=== PATIENT | female | born 1995 | race Caucasian/White ===

== ENCOUNTER 2020-06-06 12:56 | Outpatient (REF) | payer MEDICAID, SELFPAY | END 2020-06-06 12:57 | disposition home or self-care (01) | LOC: HO.LAB 12:56 | PROVIDERS: PCP Internal Medicine; Visit Provider Internal Medicine | DX: Z20.828 Contact with and (suspected) exposure to other viral communicable diseases (principal) | CPT/HCPCS: C9803; U0003 ==

== ENCOUNTER 2021-12-30 09:59 | Emergency (ER) | payer MEDICAID, SELFPAY ==
[2021-12-30 10:14] VITALS: BP 126/80; PULSE 73; RESP 16; TEMP 36.1; O2SAT 100; BMI 31.3
[2021-12-30 10:45] LABS: COVID-19 Test Negative (Negative)
[2021-12-30 10:53] LABS: IDNOW Serial# 08D9AD1C; Strep A Nucleic Acid Negative (Negative)
--- NOTE | 2021-12-30 11:58 | ED_ITS ---
HPI - URI/Sore Throat General Chief Complaint: Upper Respiratory Symptoms Stated Complaint: sore throat Time Seen by Provider: 12/30/21 11:58 Source: patient Mode of arrival: ambulatory Limitations: no limitations History of Present Illness HPI Narrative: Patient presents emergency department for evaluation of a sore throat and cough. Patient states that for 1 week she has been experiencing a sore throat, with p roductive cough. Reports her throat to be more sore at night and notices herself coughing more. During the day her throat is described as itchy. She does report a runny nose, and being told in the past that she has seasonal allergies. She does additionally report that her partner is having COVID like symptoms. Denies fevers, chills, headache, lightheadedness, additional upper respiratory symptoms, chest pain, palpitations, shortness of breath, difficulty breathing, nausea, vomiting abdominal pain. Related Data Allergies Allergy/AdvReac Type Severity Reaction Status Date / Time No Known Allergies Allergy Unverified 03/01/20 17:10 [No Known Allergies*] Review of Systems 2 Review of Systems: Constitutional: No fever. No chills. No weakness. No fatigue. ENT/ Mouth: No Ear Pain, no Nasal Congestion, positive sore throat, positive Rhinorrhea, No Swallowing Difficulty Skin: No rash or itching. Cardiovascular: No chest pain. No palpitations. Respiratory: No shortness of breath. Positive cough. Positive sputum production. Gastrointestinal: No nausea. No vomiting. No diarrhea. No abdominal pain. Genitourinary: No burning micturition. No urinary frequency. Neurologic: No headache. No dizziness. No syncope. No numbness or tingling in the extremities. Musculoskeletal: No muscle pain. No back pain. No joint pain or stiffness. Yes all other systems are reviewed and are negative [facility] Past Medical History Attestation statement: The following information was validated with the patient. Source: old records reviewed Social History Social History Advance Directives: No Advance Directives Information Provided: No Physical Exam Vital Signs: Vital Signs: Last Vital Signs Temp 97.0 F 12/30/21 10:14 Pulse 73 12/30/21 10:14 Resp 16 12/30/21 10:14 BP 126/80 12/30/21 10:14 Pulse Ox 100 12/30/21 10:14 O2 Del Method 12/30/21 10:14 BMI result Body Mass Index 31.3 Vital signs have been reviewed as normal and appeared to be correct. Blood pressure normal.? Heart rate normal.? Respiration rate normal. Temperature normal.? Oxygen saturation normal. Appearance: Alert.?Oriented to person, place and time. No acute distress.?Normal affect. Eyes: Pupils equal, round and reactive to light.? ENT: TM normal bilaterally. Pharynx very mild erythema, no exudate, no tonsillar hypertrophy?? Neck: Normal inspection.? Neck supple.??No cervical adenopathy CVS: Heart sounds normal. Normal heart rate and rhythm.? Pulses normal.?? Respiratory: No respiratory distress.? Lung sounds clear to auscultation bilaterally?? Abdomen: Soft and non-tender. Normoactive bowel sounds. Skin: Skin warm and dry.? Normal skin color.? ? Extremities: No lower extremity edema.? Neuro: Moves all extremities spontaneously. Sensation intact bilaterally. No motor deficits. Ambulates with normal steady gait. Course Course Course Narrative: Patient is a 26-year-old female with no significant past medical history, presenting for evaluation of sore throat and cough. COVID-19 testing negative. Group a strep testing negative. Consistent with peritonsillar abscess Patient declines possibility or concern for oral sexually transmitted infections. At this time history and physical exam not consistent with ACS/PE/pneumonia. Suspect that symptoms are most likely secondary to possible viral upper respiratory infection, verses postnasal drip. She is well-appearing, nontoxic, afebrile, no tachycardia or tachypnea/hypoxia. Speaking clear full sentences, ambulatory with steady gait. Discussed conservative treatment including rest, hydration, Flonase nasal spray which a prescription will be sent to her pharmacy for, also available [id number], and humidifier. Advised to follow-up with primary care provider as needed, discussed reasons to return back to the emergency department. All questions were answered. Patient discharged home in stable condition. MDM - URI/Sore Throat Medical Records Attestation: I reviewed the patient's medical records. Lab Data Attestation: I reviewed the patient's lab results. Labs: Lab Results 12/30/21 12/30/21 Range/Units 10:18 10:18 COVID-19 (ALLIE) Negative (Negative) COVID-19 Clin Com See Note S. pyogenes GrpA CARTER Negative (Negative) Discharge Plan Discharge Clinical Impression: Pharyngitis Patient Disposition: Home, Self-Care Instructions: Pharyngitis (ED), Postnasal Drip (DC) Additional Instructions: COVID-19 and Step testing were negative As we discussed, you may trial a course of Flonase 1 spray to each nostril twice daily. This should be use consistently for 1-2 weeks. If your symptoms resolve you may trial discontinuing medication. Please follow-up with your primary care provider for any persistent symptoms. You may return to the emergency department with any new or worrisome symptoms or concerns Interventions: ED Discharge Assessment Last Done: 12/30/21 12:29 Discharge Date/Time: 12/30/21 12:30
== END 2021-12-30 12:30 | disposition home or self-care (01) ==
PROVIDERS: Emergency Provider Emergency Medicine
DX: J02.9 Acute pharyngitis, unspecified (principal); R05.9 Cough, unspecified; Z20.822 Contact with and (suspected) exposure to COVID-19
CPT/HCPCS: 36415; 87635; 87651; 99283

== ENCOUNTER 2022-01-15 14:23 | Emergency (ER) | payer MEDICAID, SELFPAY ==
[2022-01-15 15:34] VITALS: BP 133/90; PULSE 88; RESP 18; TEMP 36.9; O2SAT 98; BMI 34.4
[2022-01-15 16:05] LABS: MANUAL DIFF FLAG NO
[2022-01-15 16:07] LABS: Basophils Percent Auto 0.3 % (0-2); Eosinophils Absolute Auto 0.1 X10*3/uL (0.0-0.4); Eosinophils Percent Auto 0.9 % (0-4); Hematocrit 42.3 % (37.0-47.0); Hemoglobin 14.8 g/dl (12.0-16.0); Imm Gran Abs Auto 0.02 X10*3/uL (0.00-0.03); Imm Gran Pct Auto 0.3 % (0.0-0.4); Lymphocytes Absolute Auto 1.8 X10*3/uL (1.2-4.9); Lymphocytes Percent Auto 24.2 % (20-40); Mean Corpuscular Hemoglobin 31.1 pg (27.0-33.0); Mean Corpuscular Volume 88.9 fL (80.0-98.0); Mean Platelet Volume 10.6 fL (9.4-12.3); Monocytes Absolute Auto 0.4 X10*3/uL (0.1-1.2); Monocytes Percent Auto 5.6 % (2-11); Neutrophils Absolute Auto 5.1 x10*3/uL (2.0-8.3); Neutrophils Percent Auto 68.7 % (45-73); Platelet Count 247 X10*3/uL (160-400); Red Blood Count 4.76 X10*6/uL (4.20-5.50); White Blood Count 7.4 X10*3/uL (4.8-10.8)
[2022-01-15 16:20] LABS: Anion Gap 15 (12-20); Blood Urea Nitrogen 10 mg/dL (9-16); Calcium 9.5 mg/dL (8.4-10.2); Carbon Dioxide 24 mmol/L (22-29); Chloride 107 mmol/L (96-108); Creatinine Clr Calc Pharmacy 106.8; Estimated Glomerular Filt Rate > 60; Glucose Random 115 mg/dL (60-115); Sodium 142 mmol/L (135-145)
[2022-01-15 16:25] LABS: COVID-19 Test Negative (Negative)
--- NOTE | 2022-01-15 20:54 | ED.ABDPAIN ---
HPI - Abdominal Pain General Chief Complaint: Abdominal Pain Stated Complaint: nausea, Diarrhea Source: patient Mode of arrival: ambulatory Limitations: no limitations History of Present Illness HPI narrative: 26-year-old female presents with diffuse diffuse abdominal pain, nausea, vomiting, and diarrhea that started at 11:00 this morning. She states that she still feels nauseous and has had multiple bowel movements but does not have any other concerning symptoms at this time. Patient states to feel fatigued but denies fevers, chills, chest pain or pressure, palpitations, , abdominal distention, dysuria, hematuria, melena, hematochezia, or hematemesis. MD elicited complaint: abdominal pain Pertinent past history: none Onset (ago): hour(s) (10 hours) Pain Consistency: intermittent Location: diffuse Severity: moderate Pain scale (0-10): 6 Quality: cramping Radiation: none Exacerbating factors: bowel movement Relieving factors: nothing Associated symptoms: nausea, vomiting and diarrhea Related Data Previous Rx's Medication Instructions Recorded fluticasone propionate 50 1 spray intranasal BID #16 grams 12/30/21 mcg/actuation nasal spray,suspension (Flonase Allergy Relief) Allergies Allergy/AdvReac Type Severity Reaction Status Date / Time No Known Allergies Allergy Unverified 01/15/22 15:34 [No Known Allergies*] Review of Systems Review of Systems Constitutional: No Weight loss, No Fever, No Chills, No Night Sweats, No Fatigue, No Malaise ENT/Mouth: No Hearing loss, No Ear Pain, No Nasal Congestion, No Sinus Pain, No Hoarseness, No sore throat, No Rhinorrhea, No Swallowing Difficulty Eyes: No Eye Pain, No Swelling, No Redness, No Foreign Body, No Discharge, No Vision Changes Cardiovascular: No Chest Pain, No SOB, No Dyspnea on Exertion, No Orthopnea, No Edema, No Palpitations Respiratory: No Cough, No Sputum, No Wheezing, No Smoke Exposure, No Dyspnea Gastrointestinal: Positive Nausea, Positive Vomiting, positive Diarrhea, positive abdominal Pain, No Hematochezia, No Melena Genitourinary: no irregular bleeding, No Dysuria, No Urinary Frequency, No Hematuria, No Urinary Incontinence, No Urgency, No Flank Pain, No Urinary Flow Changes, No Hesitancy Musculoskeletal: No joint pain, No Myalgias, No Joint Swelling Skin: No Skin Lesions, No rash Neuro: No Weakness, No Numbness, No Paresthesias, No Loss of Consciousness, No Dizziness, No Headache Psych: No Anxiety/Panic, No Depression, No SI/HI/AH/VH, No Social Issues Heme/Lymph: No Bruising, No Bleeding,No Lymphadenopathy Endocrine: No Polyuria, No Polydipsia, No Temperature Intolerance Yes all other systems are reviewed and are negative ON LICENSE OF [facility] Past Medical History Attestation statement: The following information was validated with the patient. Source: old records reviewed Social History Social History Patient Tobacco Use Status: Current everyday Tobacco user Use of substances other than those prescribed or required for medical reasons: No Advance Directives: No Advance Directives Information Provided: No Physical Exam ED Vital Signs: Vital Signs - 24 hr 01/15/22 15:34 01/15/22 21:45 Temperature 98.4 F Pulse Rate 88 81 Respiratory Rate 18 18 Blood Pressure 133/90 H 125/81 Pulse Oximetry 98 100 Oxygen Delivery Method Room Air Room Air BMI result Body Mass Index 34.4 Appearance: Alert. Oriented X3. No acute distress. Eyes: Pupils equal, round and reactive to light. Sclera nonicteric. ENT: Pharynx normal. Moist mucous membranes. Neck: Normal inspection. Neck supple. CVS: Normal heart rate and rhythm. Pulses normal. Respiratory: No respiratory distress. Breath sounds normal. Abdomen: Soft and nontender. Negative psoas, obturator, Alaniz's and McBurney's. No distention or rigidity. No hepatosplenomegaly. Skin: Skin warm and dry. Normal skin color. Normal skin turgor. Extremities: No lower extremity edema. Gait well-balanced well coordinated. Neuro: No motor deficit. No sensory deficit. Cranial nerves 2-12 intact. Course Course Course Narrative: 26-year-old female presents with several hours of abdominal pain, nausea, vomiting, and diarrhea. Does not report any sick contacts or eating questionable food products. Patient is not , does not report melena, hematochezia, or hematemesis. Afebrile and nontoxic. Labs drawn while patient was in the emergency department waiting room and all are unremarkable. Physical exam is negative for acute findings. At this time I feel that no further workup is necessary. I did discuss possibility for appendicitis versus colitis versus viral syndrome. Patient does understand that if symptoms persist that she must return for evaluation as this could always could be an early appendicitis. Patient verbalized understanding of and agrees to plan of care discharge home. Verbalizes understanding of signs symptoms indicating need for emergent intervention. MDM - Abdominal Pain Differential Diagnosis Differential diagnosis: Likely abdominal pain, acute appendicitis, diverticulitis and gastritis Medical Records Attestation: I reviewed the patient's medical records. Lab Data Attestation: I reviewed the patient's lab results. Result diagrams: 01/15/22 16:00 01/15/22 16:00 Labs: Lab Results 01/15/22 01/15/22 01/15/22 Range/Units 15:55 16:00 16:00 WBC 7.4 (4.8-10.8) X10*3/uL RBC 4.76 (4.20-5.50) X10*6/uL Hgb 14.8 (12.0-16.0) g/dl Hct 42.3 (37.0-47.0) % MCV 88.9 (80.0-98.0) fL MCH 31.1 (27.0-33.0) pg MCHC 35.0 (31.0-35.0) g/dl RDW 12.0 (11.0-16.0) % Plt Count 247 (160-400) X10*3/uL MPV 10.6 (9.4-12.3) fL Immature Gran % (Auto) 0.3 (0.0-0.4) % Neut % (Auto) 68.7 (45-73) % Lymph % (Auto) 24.2 (20-40) % Carroll % (Auto) 5.6 (2-11) % Eos % (Auto) 0.9 (0-4) % Baso % (Auto) 0.3 (0-2) % Lymph # (Auto) 1.8 (1.2-4.9) X10*3/uL Carroll # (Auto) 0.4 (0.1-1.2) X10*3/uL Eos # (Auto) 0.1 (0.0-0.4) X10*3/uL Baso # (Auto) 0.0 (0.0-0.2) X10*3/uL Abs Immat Gran (auto) 0.02 (0.00-0.03) X10*3/uL Absolute Neuts (auto) 5.1 (2.0-8.3) x10*3/uL Absolute Nucleated RBC 0.000 (0.0-0.012) X10*3/uL Nucleated RBC % (auto) 0.0 (0.0-0.2) /100WBC Sodium 142 (135-145) mmol/L Potassium 4.0 (3.3-5.1) mmol/L Chloride 107 (96-108) mmol/L Carbon Dioxide 24 (22-29) mmol/L Anion Gap 15 (12-20) BUN 10 (9-16) mg/dL Creatinine 0.96 (0.5-1.4) mg/dL Estim Creat Clear Calc 106.8 Estimated GFR > 60 Random Glucose 115 (60-115) mg/dL Calcium 9.5 (8.4-10.2) mg/dL COVID-19 (ALLIE) Negative (Negative) COVID-19 Clin Com See Note Discharge Plan Discharge Clinical Impression: Acute viral syndrome Patient Disposition: Home, Self-Care Instructions: Viral Syndrome (ED) Additional Instructions: You were evaluated for abdominal pain, nausea vomiting and diarrhea. Your symptoms are consistent with viral syndrome. Please rest and drink plenty of fluids. Follow-up with primary care provider as needed. Thank you for choosing this emergency department for evaluation. Please follow-up with primary care physician as needed. Return to the emergency department for any new, concerning, or worsening symptoms. Prescriptions: No Action fluticasone propionate [Flonase Allergy Relief] 50 mcg/actuation spray,suspension 1 spray intranasal BID Qty: 16 0RF Rx Instructions: administer into each nostril Stand Alone Forms: Work/School Release Interventions: ED Discharge Assessment Last Done: 01/15/22 21:46 Discharge Date/Time: 01/15/22 21:49
[2022-01-15 21:45] VITALS: BP 125/81; PULSE 81; RESP 18; O2SAT 100
== END 2022-01-15 21:49 | disposition home or self-care (01) ==
PROVIDERS: Emergency Provider Internal Medicine
DX: B34.9 Viral infection, unspecified (principal); R10.9 Unspecified abdominal pain; Z20.822 Contact with and (suspected) exposure to COVID-19; Z79.899 Other long term (current) drug therapy; F17.200 Nicotine dependence, unspecified, uncomplicated; Z71.6 Tobacco abuse counseling
CPT/HCPCS: 80048; 85025; 87635; 99283; 99284

== ENCOUNTER 2025-05-17 18:18 | Emergency (ER) | payer SELFPAY ==
--- NOTE | ~2025-05-17 | XR_ITS ---
CLINICAL HISTORY: coughing. pnuemnia? Single view of the chest. COMPARISON: None provided. FINDINGS: Normal heart and mediastinal contours. No consolidation. No pleural effusion or pneumothorax. No acute fracture. Scoliosis. IMPRESSION: 1. No consolidation. This document has been electronically signed by: Alfredo Guerin MD on 05/17/2025 19:48:16
--- NOTE | 2025-05-17 19:09 | ED.GENADULT ---
HPI - General Adult General Chief complaint: General Medical Stated complaint: URI symptoms Time Seen by Provider: 05/17/25 22:36 Source: patient Limitations: no limitations History of Present Illness ED Provider: Whitney Cobos PA-C HPI narrative: 30-year-old female with a history of asthma presents with cough and cold symptoms x3 days. Associated headache, myalgias, fever chills and dry cough, wheezing at times. No sick contacts with similar symptoms. Related Data Previous Rx's ?Medication ?Instructions ?Recorded fluticasone propionate 50 1 spray intranasal BID #16 grams 12/30/21 mcg/actuation nasal spray,suspension (Flonase Allergy Relief) albuterol sulfate 90 mcg/actuation 2 puff inhalation Q4-6H PRN 05/17/25 aerosol inhaler (Ventolin HFA) shortness of breath or wheezing #6.7 grams ketorolac 10 mg tablet 10 mg PO Q6H PRN pain #20 tabs 05/17/25 Allergies Allergy/AdvReac Type Severity Reaction Status Date / Time No Known Allergies (No Known Allergy Verified 05/17/25 19:12 Allergies*) Review of Systems Review of Systems: Yes all other systems are reviewed and are negative Constitutional: Constitutional: Reports chills, Reports fatigue, Reports fever(s), Reports headache(s) and Reports malaise ENT: Reports headache(s) Cardiovascular: Cardiovascular: Reports chest pain Gastrointestinal: Gastrointestinal: Denies abdominal pain, Denies diarrhea, Denies nausea and Denies vomiting Musculoskeletal: Musculoskeletal: Reports myalgias Neurologic: Reports headache(s) Endocrine: Endocrine: Reports fatigue PMFSH Past Medical History Attestation statement: The following information was validated with the patient. Social History Social History Patient Tobacco Use Status: Current everyday Tobacco user Advance Directives: No Advance Directives Information Provided: Yes Do you have a plan to hurt others: No Plan Physical Exam ED Vital Signs: Vital Signs - 24 hr 05/17/25 19:10 05/17/25 23:28 Temperature 99.8 F 99.8 F Pulse Rate 78 78 Respiratory Rate 16 16 Blood Pressure 131/75 131/75 Pulse Oximetry 96 96 Oxygen Delivery Method Room Air Room Air BMI result Body Mass Index 32.1 Const Other: Alert well-appearing Orientation/consciousness: patient oriented x3 Resp Other: Lungs clear to auscultation no wheezing Effort & Inspection: normal respiratory effort Cardio Other: Normal peripheral perfusion Skin Other: Warm dry no rash Neuro General: patient oriented x3, gait normal, no focal motor deficits and CN's II-XI intact bilaterally Psych Other: Cooperative Course Course Course Narrative: RME: 30 yold female presents to the eD for coughgin, sore throat, and bodyaches, and chills. swabs, chest xray ordred Medications Administered Discontinued Medications Generic Name Dose Route Start Last Admin Trade Name Freq PRN Reason Stop Dose Admin Ketorolac Tromethamine 15 mg 05/17/25 22:57 05/17/25 23:23 Ketorolac Tromethamine 15 Mg/Ml Vial IM 05/17/25 22:58 15 mg ONCE ONE Administration Medical Decision Making Medical Decision Making [facility] Narrative: 30-year-old female with a history of asthma presents with cough and cold symptoms x3 days. Associated headache, myalgias, fever chills and dry cough, wheezing at times. No sick contacts with similar symptoms. Problem: Asthma History: Per patient I have considered the following differential diagnoses: Viral syndrome, asthma exacerbation, bronchitis, pneumonia Plan: Viral panel and chest x-ray ordered from triage, the patient has a influenza. They are out of the window for Tamiflu. No active wheezing to suggest asthma exacerbation. I have independently reviewed the following tests: Viral panel positive for influenza A Chest x-ray:FINDINGS: Normal heart and mediastinal contours. No consolidation. No pleural effusion or pneumothorax. No acute fracture. Scoliosis. IMPRESSION: 1. No consolidation. Differential Diagnosis Differential Diagnoses: The differential diagnosis associated with the presentation includes See [facility] Admission/Observation Consideration of admission/observation: Escalation of care including admission/observation considered Not applicable Lab Data [facility] Lab Attestation statement: I reviewed the patient's lab results. Labs: Lab Results 05/17/25 Range/Units 19:30 Influenza Type A (PCR) POSITIVE A (Negative) Influenza Type B (PCR) NEGATIVE (Negative) RSV RNA Qual (PCR) NEGATIVE (Negative) SARS-CoV-2 RNA (RT-PCR) NEGATIVE (Negative) S. pyogenes GrpA CARTER Negative (Negative) Radiology Impression Discussion of test interpretation with radiology: I have reviewed the radiologist's reading. Discharge Plan Discharge Clinical Impression: Influenza A Patient Disposition: Home, Self-Care Instructions: Influenza (ED) Additional Instructions: You were found to have influenza. See home care instructions. The chest x-ray was clear you do not have pneumonia. If you develop wheezing use your inhaler as directed. Use the ketorolac as directed, take this medication with food, for fever, body ache and headache. This will also help with your chest wall discomfort. You can alternate with [id number] Tylenol 1000 mg taken every 6 hours. Viral illnesses self-limiting. You will gradually feel better day by day. You should rest and increase your fluid intake. Follow up with your primary care as needed. Prescriptions: New ketorolac 10 mg tablet 10 mg PO Q6H PRN (Reason: pain) Qty: 20 0RF Rx Instructions: maximum total duration of 5 days from all oral, intranasal, or parenteral formulations, the patient received an intramuscular dose of Toradol here in the emergency room. albuterol sulfate [Ventolin HFA] 90 mcg/actuation HFA aerosol inhaler 2 puff inhalation Q4-6H PRN (Reason: shortness of breath or wheezing) Qty: 6.7 0RF No Action fluticasone propionate [Flonase Allergy Relief] 50 mcg/actuation spray,suspension 1 spray intranasal BID Qty: 16 0RF Rx Instructions: administer into each nostril Stand Alone Forms: Work/School Release Interventions: ED Discharge Assessment Last Done: 05/17/25 23:28 Discharge Date/Time: 05/17/25 23:28 Print Language: Armenian
[2025-05-17 19:10] VITALS: BP 131/75; PULSE 78; RESP 16; TEMP 37.7; O2SAT 96; BMI 32.1
[2025-05-17 19:47] LABS: IDNOW Serial# 55D5AD1C; Strep A Nucleic Acid Negative (Negative)
[2025-05-17 20:19] LABS: Resp Syncy Virus RNA Qual PCR NEGATIVE (Negative); SARS COV2 PCR INHOUSE NEGATIVE (Negative)
--- OUTSIDE RECORDS SUMMARY | 2025-05-17 22:09 | XMS_ITS | Clinical Summary ---
Author Organization [facility] Address [address] [place] [address] Phone Care Team Providers Care Housecleaner Name Role Phone Physician, No Pcp Primary Care Provider Unavaila ble Allergies No known active allergies Medications cyclobenzaprin e (FLEXERIL) 5 mg tablet Take 1 Tablet by mouth 3 times daily as needed for Muscle spasms for up to 10 days. - Oral Active naproxen sodium (ANAPROX) 550 mg tablet Take 1 tablet (550 mg total) by mouth 2 (two) times a day with meals. Active loratadine (CLARITIN) 10 mg tablet Take 1 tablet (10 mg total) by mouth 1 (one) time each day. Active acetaminophen (Tylenol 8 Hour) 650 mg 8 hr tablet Take 1 tablet (650 mg total) by mouth every 8 (eight) hours if needed. Do not crush, chew, or split. Active medroxyPROGEST ERone (DEPO-PROVERA) 150 mg/mL injection Inject 1 mL into the muscle Every 3 Months. - Intramuscular Active cetirizine (ZyrTEC) 10 mg tablet Take 1 tablet (10 mg total) by mouth 1 (one) time each day. 4 Active fluticasone propionate (FLONASE) 50 mcg/actuation nasal spray 1 spray. 4 Active cetirizine (ZyrTEC) 10 mg tablet Take 1 tablet (10 mg total) by mouth 1 (one) time each day. 30 each 5 09/30/19 26 Active albuterol HFA (PROAIR HFA ; PROVENTIL HFA ; VENTOLIN HFA) 90 mcg/actuation inhaler Inhale 2 puffs by mouth every 4 (four) hours if needed for shortness of breath or wheezing. 1 each 5 Active Active Problems Problem Noted Date Diagnosed Date Idiopathic scoliosis 03/23/2024 Folliculitis 03/23/2024 Allergic rhinitis due to allergen 03/23/2024 Lumbar spondylosis 03/23/2024 Assessment & Plan (04/22/2024 1:01 PM EST): Ms. Saunders did have a setback from traction at physical therapy leading to emergency room visit. Since she started a 6-day course of steroids on 03/28/2024 and had dry needling on the same day, her pain has resolved. She feels well now and continues to do her home exercise program but is concerned that any additional activity can trigger the pain again. We had a lengthy discussion regarding continued core strengthening at the gym with activity such as yoga, Pilates, using an elliptical or stationary bicycle and I recommended swimming. She works at the [employer] and will see if she is granted permission to use their facility. She would also like to pursue a breast reduction and we will make the referral to Dr. Funez. Immunizations Immunization Administration Dates Next Due DTP 02/08/1996, 5,1994,1993 DTaP, Unspecified 03/21/1999 [id number] (Pediarix) 6 w ks to less than 7yo 03/21/1999,1994,1994,1993 HPV, Unspecified 05/16/2008,01/12/2008, 8 Hepatitis B (Recombivax HB-D ialysis) 18yo and older 01/08/1995,1994,1994 HiB 08/11/1995, 5,1994,1994 MMRV, measles mumps rubella and varicella live (Proquad) 4yo to less than 7yo 03/21/1999,08/11/1995 Meningococcal, Unspecified 02/04/2013,09/23/2007 Moderna SARS-CoV-2 COVID-19, mRNA, LNP-S, preservative free 08/10/2021,01/03/2021,12/06/2020 PPD Test 03/11/2017 Polio, Unspecified 03/21/1999, 5,1994,1993 Tdap Tetanus diptheria acell ular pertussis (Boostrix; Adacel) 7yo and older 02/18/2021,12/09/2016,07/28/2005 Varicella live (Varivax) 12m o and older 10/24/2008,08/11/1995 Surgical History Surgery Date Site/Laterality Comments OTHER SURGICAL HISTORY 09/13/1997 PROCEDURE: FRENULECTOMY/FRENULOTOMY TONSILLECTOMY ADENOIDECTOMY, BILATERAL MYRINGOTOMY AND TUBES 06/15/1999 PROCEDURE: MT TONSILLECTOMY & ADENOIDECTOMY <AGE 12 BACK SURGERY 04/24/2016 PROCEDURE: HISTORICAL BACK SURGERY; COMMENT: Right L4-5 minimally invasive discectomy, Dr. Roy Medical History Medical History Date Comments Unspecified asthma(493.90) DX:Un specified asthma(493.90) Unspecified otitis media 1994 DX:Unsp ecified otitis media Expressive language disorder 03/15/1996 DX: Expressive language disorder; COMMENT: EI REFERRAL Other specific developmental learning difficulties 04/15/2001 DX:Other specific developmen uche learning difficulties Urinary tract infection, sit e not specified 01/14,03/16 DX:Urinary tract infection, site not specified; COMMENT: renal ultrasound Abnormal posture 10/24/2008 DX:Abnormal pos ture; COMMENT: Weight bearing PA view of the thoracolumbar spine. There is right convex curvature of 25 degrees from T6 to T11, and left convex curvature of 30 degrees from T11 to L3. No evidence of underlying vertebral anomalies. The right hip projects 1 cm higher than the left. Risser grade is IV. UTI (lower urinary tract infection) 10/30/2011 DX:UTI (lower urinary tract infection) Depression 10/30/2011 DX:Depression Obesity, unspecified 09/23/2007 DX:Obesity, unspecified Acne 10/24/2008 DX:Acne Anxiety and depression DX:Anxiet y and depression Difficulty balancing DX:Difficul ty balancing Family History Medical History Relation Name Comments Hypertension Maternal Grandfather Diabetes Maternal Grandmother heart d isease 53yo/kidney problem Hypertension Maternal Grandmother Other cancer Maternal Grandmother Other: HEART Other mggm H.A. age 5 3 Hypertension Paternal Grandfather Alcohol/Drug Paternal Grandmother Relation Name Status Comments Father Alive 07/15/1972 hansa carrasco incarcerated / Maternal Grandfather Maternal Grandmother Mother Alive 05/24/1973 luz saunders hypoparathyroid since childhood 3yo/?renal problems Other Paternal Grandfather Paternal Grandmother Social History Tobacco Use Types Packs/Day Years Used Date Smoking Tobacco: Never Smokeless Tobacco: Never Alcohol Use Standard Drinks/Week Comments Yes 0 (1 standard drink = 0.6 oz pur e alcohol) Comments Unknown Sex and Gender Information Value Date Recorded Sex Assigned at Not on file Legal Sex Female 2:47 AM EST Gender Identity Not on file Sexual Orientation Not on file Obstetrics History Last Filed Vital Signs Vital Sign Reading Time Taken Comments Blood Pressure 124/82 09/29/2024 9:45 PM EDT Pulse 100 09/29/2024 9:45 PM EDT Temperature 36.5 C (97.7 F) 09/29/2024 9:45 PM EDT Respiratory Rate 18 09/29/2024 9:45 PM EDT Oxygen Saturation 100% 09/29/2024 9:45 PM EDT Inhaled Oxygen Concentration - - Weight 95.7 kg (211 lb) 09/29/2024 9:45 PM EDT Height 170.2 cm (5' 7 ) 09/29/2024 9:45 PM EDT Body Mass Index 33.05 09/29/2024 9:45 PM EDT Plan of Treatment Health Maintenance Due Date Last Done Comments Cervical Cancer Screening: Pap Smear 07/09/2020 07/09/2017 Social Influencers of Health Screening 03/24/2024 Depression Screening 06/15/2024 COVID-19 Vaccine ( season) 2025 08/10/2021, 01/03/2021, 12/06/2020 Influenza Vaccine (#1) 2025 DTaP,Tdap,and Td Vaccines (9 - Td or Tdap) 02/18/2031 02/18/2021, 12/09/2016, 07/28/2005, Additional history exists RSV Immunization Adult Patients (1 - 1-dose 75+ series) 2069 HIB Vaccines Completed 08/11/1995, 07/17, 06/02/1995, Additional history exists Hepatitis B Vaccines Completed 03/21/1999, 01/08/1995, 1994, Additional history exists IPV Vaccines Completed 03/21/1999, 12/1998, 08/11/1995, Additional history exists MMR Vaccines Completed 03/21/1999, 12/1998, 08/11/1995, Additional history exists HPV Vaccines Completed 05/16/2008, 12/15, 09/23/2007 Varicella Vaccines Completed 10/24/2008, 1 , 08/11/1995, Additional history exists Meningococcal ACWY Vaccine Completed 02/04/2013, HIV Screening Completed 06/26/2016 Hepatitis C Screening Completed 06/26/2016 Hepatitis A Vaccines Aged Out No long er eligible based on patient's age to complete this topic Meningococcal B Vaccine Aged Out No l onger eligible based on patient's age to complete this topic Pneumococcal Vaccine: Pediatrics (0 to 5 Years) and At-Risk Patients (6 to 49 Years) Aged Out No longer eligible based on patient's age to complete this topic RSV Immunization Patients Under 20 months Aged Out No longer eligible based on patient's age to complete this topic Procedures Procedure Name Priority Date/Time Associated Diagnosis Comments PAP SMEAR Routine 07/09/2017 HEPATITIS C SCREENING Routine 06/26/2016 HIV SCREENING Routine 06/26/2016 from Last 3 Months or Most Recently Relevant to Health Maintenance Results * Pap Smear (07/09/2017) Pap smear no interpretation abstracted [facility] Provider HEALTH MAINTENANCE Final Result * HIV Screening (06/26/2016) Pathologist [facility] HIV Screening abstracted [facility] Provider HEALTH MAINTENANCE Final Result * Hepatitis C Screening (06/26/2016) Pathologist [facility] Hepatitis C Screening abstracted [facility] Provider HEALTH MAINTENANCE Final Result from Last 3 Months or Most Recently Relevant to Health Maintenance Insurance MEDICAID - [place] [address] [facility] Danika H[place] Care Teams Housecleaner Relationship Specialty Start Date End Date Physician, No Pcp PCP - General 09/29/24
[2025-05-17 23:28] VITALS: BP 131/75; PULSE 78; RESP 16; TEMP 37.7; O2SAT 96
== END 2025-05-17 23:28 | disposition home or self-care (01) ==
PROVIDERS: Physician Assistant; Emergency Provider Emergency Medicine
DX: J10.1 Influenza due to other identified influenza virus with other respiratory manifestations (principal); Z72.0 Tobacco use
CPT/HCPCS: 71045; 87637; 87651; 96372; 99283; 99284; J1885

== ENCOUNTER → 2025-05-17 19:07 | Outpatient (BNV) | payer MEDICAID, SELFPAY | PROVIDERS: Visit Provider Radiology Diagnostic Radiology | DX: R05.9 Cough, unspecified (principal) | CPT/HCPCS: 71045 ==